=== PATIENT | female | born 1955 | race Caucasian/White ===

== ENCOUNTER → 2016-06-21 | Outpatient (CLI) | payer OTHER ==
[~2016-06-21] MED LIST: ATV/1 PO; CHOLTAB3 PO; CITA20TA4 PO; DOXY50CA PO; HYDR-3124 PO; LEVO100T7 PO; OMEG10007 PO; TRAM-10 PO; VITA400C15 PO
[2016-06-21 13:27] LABS: URINE APPEARANCE CLEAR (CLEAR); URINE BILIRUBIN NEG (NEG); URINE COLOR YELLOW; URINE NITRITE NEG (NEG); URINE SPECIFIC GRAVITY 1.009 (1.000-1.030); UROBILINOGEN NEG (NEG)
[2016-06-21 13:29] LABS: MANUAL MICROSCOPIC REQUIRED? NO; REVIEW REQ? NO
== END | disposition home or self-care (01) ==
LOC: C.LABSPEC 12:42
PROVIDERS: ATTEND Internal Medicine
DX: N39.0 Urinary tract infection, site not specified (principal)

== ENCOUNTER → 2016-11-13 | Outpatient (CLI) | payer OTHER ==
[2016-11-13 17:38] LABS: BASO % 0.8 %; BASO ABS # 0.03 K/uL (0-0.2); COMPLETE YES; EOS % 12.2 %; LYMPH % 37.2 %; LYMPH ABS # 1.43 K/uL (1.2-3.4); MEAN CELL VOLUME 88.8 fL (80-100); MEAN CORPUSCULAR HEMOGLOBIN 30.5 pg (25-34); MEAN CORPUSCULAR HGB CONC 34.4 g/dl (32-36); MONO % 6.5 %; NEUT % 43.3 %; PLATELET COUNT 197 K/uL (130-400); RED BLOOD COUNT 4.39 M/uL (4.2-5.4); WHITE BLOOD COUNT 3.84 K/uL (4.8-10.8)
[2016-11-13 17:58] LABS: ALT/SGPT 36 U/L (12-78); AST/SGOT 22 U/L (15-37); BLOOD UREA NITROGEN 15 mg/dl (7-18); BUN/CREATININE RATIO 17.8 (10-20); CALCIUM 8.4 mg/dl (8.5-10.1); CARBON DIOXIDE 28 mmol/L (21-32); CHLORIDE 110 mmol/L (98-107); CREATININE 0.87 mg/dl (0.60-1.20); GLUCOSE 79 mg/dl (70-99); POTASSIUM 3.6 mmol/L (3.5-5.1); SODIUM 145 mmol/L (136-145)
[2016-11-13 18:09] LABS: ALB/GLOB RATIO 1.1 (0.9-2); ALKALINE PHOSPHATASE 82 U/L (45-117)
== END | disposition home or self-care (01) ==
LOC: C.LABBFT 10:31
PROVIDERS: ATTEND Internal Medicine
DX: E03.9 Hypothyroidism, unspecified (principal)

== ENCOUNTER → 2016-11-21 | Outpatient (CLI) | payer OTHER | END | disposition home or self-care (01) | LOC: C.PAPS 12:40 | PROVIDERS: ATTEND Obstetrics & Gynecology | DX: Z12.4 Encounter for screening for malignant neoplasm of cervix (principal) ==

== ENCOUNTER → 2016-12-27 | Outpatient (CLI) | payer OTHER | END | disposition home or self-care (01) | LOC: C.CPL 09:35 | PROVIDERS: ATTEND Orthopaedic Surgery Sports Medicine | DX: M77.41 Metatarsalgia, right foot (principal) ==

== ENCOUNTER → 2017-01-01 | Outpatient (CLI) | payer OTHER ==
--- NOTE | 2017-01-02 07:44 | MAMMOGRAPHY REPORT ---
BILATERAL DIGITAL SCREENING MAMMOGRAM WITH CAD: 01/01/2017 CLINICAL HISTORY: Routine screening. Patient has no complaints. TECHNIQUE: Bilateral CC and MLO views were obtained. Current study was also evaluated with a Compute r Aided Detection (CAD) system. COMPARISON: Comparison is made to exams dated: 07/22/2014 aspiration, 07/22/2014 mammogram, 07/02/2014 u ltrasound, 07/02/2014 mammogram - [facility], 02/26/2014 mammogram, and 10/16/2011 mamm ogram. BREAST COMPOSITION: The tissue of both breasts is heterogeneously dense, which may obscure small mas ses. FINDINGS: A linear scar marker overlies the superior right breast. There has been no reaccumulation of the previously aspirated cyst in the 8:00 left breast. No new suspicious mass, architectural dist ortion or cluster of microcalcifications is seen. IMPRESSION: ACR BI-RADS CATEGORY 1: NEGATIVE There is no mammographic evidence of malignancy. A 1 year screening mammogram is recommended. The pa tient will receive written notification of the results. Approximately 10% of breast cancers are not detected with mammography. A negative mammographic report should not delay biopsy if a clinically suggestive mass is present. Maude Parekh M.D. ay/:01/01/2017 15:23:09 [employer]ilermaker: Nena Chaudhry, [facility] letter sent: Normal 1/2 BI-RADS Code: ACR BI-RADS Category 1: Negative
== END | disposition home or self-care (01) ==
LOC: C.MAMM 13:35
PROVIDERS: ATTEND Obstetrics & Gynecology
DX: Z12.31 Encounter for screening mammogram for malignant neoplasm of breast (principal)

== ENCOUNTER → 2017-09-05 | Outpatient (CLI) | payer OTHER ==
[2017-09-05 12:37] LABS: BASO % 1.2 %; BASO ABS # 0.03 K/uL (0-0.2); EOS % 10.7 %; EOS ABS # 0.27 K/uL (0-0.5); HEMATOCRIT 39.5 % (37-47); HEMOGLOBIN 13.7 g/dL (12.0-16.0); LYMPH % 38.9 %; LYMPH ABS # 0.98 K/uL (1.2-3.4); MEAN CELL VOLUME 86.6 fL (80-100); MEAN CORPUSCULAR HGB CONC 34.7 g/dl (32-36); MEAN PLATELET VOLUME 10.2 fL (7.4-10.4); MONO % 9.5 %; MONO ABS # 0.24 K/uL (0.11-0.59); NEUT % 39.7 %; PLATELET COUNT 222 K/uL (130-400); RED CELL DISTRIBUTION WIDTH CV 13.8 % (11.5-14.5); RED CELL DISTRIBUTION WIDTH SD 43.6 fL (36.4-46.3); WHITE BLOOD COUNT 2.52 K/uL (4.8-10.8)
[2017-09-05 13:30] LABS: BLOOD UREA NITROGEN 11 mg/dl (7-18); CREATININE 0.84 mg/dl (0.60-1.20); GLUCOSE 86 mg/dl (70-99)
[2017-09-05 13:31] LABS: ALBUMIN 3.6 gm/dl (3.4-5.0); ALT/SGPT 18 U/L (12-78); CALCIUM 9.3 mg/dl (8.5-10.1); CARBON DIOXIDE 28 mmol/L (21-32); CHOLESTEROL 209 mg/dl (0-200); POTASSIUM 3.8 mmol/L (3.5-5.1); SODIUM 140 mmol/L (136-145)
[2017-09-05 13:41] LABS: ALKALINE PHOSPHATASE 64 U/L (45-117); AST/SGOT 17 U/L (15-37); LDL CHOLESTEROL CALCULATED 120 mg/dl; TOTAL PROTEIN 6.8 gm/dl (6.4-8.2)
== END | disposition home or self-care (01) ==
LOC: C.LABBFT 10:46
PROVIDERS: ATTEND Internal Medicine
DX: E03.9 Hypothyroidism, unspecified (principal); D72.819 Decreased white blood cell count, unspecified; E78.5 Hyperlipidemia, unspecified

== ENCOUNTER → 2017-09-12 | Outpatient (CLI) | payer OTHER | END | disposition home or self-care (01) | LOC: C.LABBFT 14:00 | PROVIDERS: ATTEND Internal Medicine | DX: R39.15 Urgency of urination (principal); R35.0 Frequency of micturition ==

== ENCOUNTER 2019-02-24 15:29 | Inpatient (IN) ==
[2019-02-24] MEDS ORDERED: cefTRIAXone SODIUM 1,000 MG/50 ML BAG IV STA (17:04)
[2019-02-24] MEDS ORDERED: ACETAMINOPHEN 500 MG TAB PO STA (17:04)
[2019-02-24] MEDS ORDERED: VANCOMYCIN HCL 1,000 MG in SODIUM CHLORIDE 0.9% 500 ML IV ONE (17:07)
[2019-02-24] MEDS ORDERED: VANCOMYCIN CONSULT ACTIVE PRN (17:07)
[2019-02-24 17:39] LABS: Basophils # (auto) 0.01 K/uL (0-0.2); Basophils % (auto) 0.2 %; Eosinophils % (auto) 6.5 %; Hematocrit (blood only) 37.2 % (37-47); Lymphocytes # (auto) 0.76 K/uL (1.2-3.4); Lymphocytes % (auto) 16.3 %; Mean Corpuscular Hemoglobin 31.4 pg (25-34); Mean Corpuscular Hgb Conc 34.9 g/dL (32-36); Mean Corpuscular Volume 89.9 fL (80-100); Mean Platelet Volume 9.7 fL (7.4-10.4); Monocytes # (auto) 0.32 K/uL (0.11-0.59); Monocytes % (auto) 6.9 %; Neutrophils # (auto) 3.26 K/uL (1.4-6.5); Neutrophils % (auto) 70.1 %; Platelet Count 195 K/uL (130-400); RDW Coefficient of Variation 13.4 % (11.5-14.5); RDW Standard Deviation 44.1 fL (36.4-46.3); Red Blood Count 4.14 M/uL (4.2-5.4); White Blood Count 4.65 K/uL (4.8-10.8)
[2019-02-24 18:00] LABS: BUN Creatinine Ratio 14.9 (10-20); Calcium 9.7 mg/dl (8.5-10.1); Creatinine Clr Calc Pharmacy 58.8 ml/min; Est GFR (African American) 105.4; Est GFR (Non-African American) 90.9; Potassium 4.1 mmol/L (3.5-5.1)
--- NOTE | 2019-02-24 18:10 | XRay Report ---
XR finger LT min 2V CLINICAL HISTORY: 63 years-old Female presenting with index, poss fb. TECHNIQUE: Frontal, oblique, and lateral views of the left second finger were obtained. COMPARISON: None. FINDINGS: No soft tissue emphysema. No osseous erosion or periosteal reaction. No acute fracture or malalignmen t. No radiopaque foreign body. Mild diffuse soft tissue swelling of the second finger. IMPRESSION: No acute osseous injury. No radiodense foreign body. Electronically signed by: Rosendo Moore M.D. 02/24/2019 6:08 PM
--- NOTE | 2019-02-24 20:45 | History & Physical Report ---
Date of Service February 24, 2019 Assessment & Plan (1) Insect bite: Admit to inpatient MedSurg Vital signs every 4 hours CBC CMP CRP daily Wound Culture obtained in the ER result pending. Started vancomycin in the ER per pharmacy management, continue inpatient. Started IV fluid hydration 80 cc/h normal saline for 1 L Pain management with Percocet 5 325 mg every 4 hours as needed. DVT prophylaxis with heparin 5000 units every 12 hours Consider consulting orthopedics if no improvement such as hand specialist Case discussed with poison control they did not have any specific recommendation at this time except for the current treatment that has been already done. Full code Present on Admission?: Yes (2) Cellulitis of hand, left: As above Present on Admission?: Yes (3) Failure of outpatient treatment: As above Present on Admission?: Yes (4) Hypothyroidism: Continue home medicine levothyroxine 112 MCG's p.o. daily. Repeat TSH pending. Present on Admission?: Yes (5) Rosacea: Stable, continue doxycycline 50 mg p.o. daily Present on Admission?: Yes (6) Anxiety: Continue home meds Lorazepam 0.5 p.o. every morning, and 1 mg p.o. nightly, pregabalin 50 mg p.o. as directed, hydroxyzine 25 mg p.o. daily and citalopram 30 mg p.o. daily for depression Present on Admission?: Yes History of Present Illness Chief Complaint: Left hand cellulitis Primary Care Provider: Yaya Solano MD Patient is a 63 years old female with past medical history of rosacea on low- dose of doxycycline, hypothyroidism, sensory now neural hearing loss, anxiety, depression, who presents to the emergency room with complaint of constant left hand pain started 2 days ago. The patient states that she felt something bite her left hand 2 days ago while she was cleaning the garage. She noted that might have been a spider. She reports that her hand is now throbbing and she states that her hand has been getting increasingly swollen and red over the last 2 days. Patient rates her pain 3 of 10. She used some cortisone cream and ice but that did not relieve her symptoms. Patient was treated as outpatient with clindamycin and that also did not help. Patient is able to move all 5 fingers of the left hand. There is a mild swelling and erythema located at the dorsum of the first finger exactly relocated that the second metacarpal bone which is more like a eschar dark red-bluish with soft center.Minimal drainage from the eschar. Patient denies fever, chills, headache, chest pain, abdominal pain, frequency, urgency, bruising, syncope near syncope hematuria or dysuria. Labs are reviewed: And shows white blood cell of 4.65, hemoglobin 13, hematocrit 37.2, platelets 195, sodium 142, potassium 4.1, chloride 108, BUN 10, creatinine 0.7, GFR 90.9, calcium 9.7. X-rays of the left hand with index finger: No acute osseous injury no radiodense foreign body. Decision was made to admit patient to [facility] and continue with IV antibiotics until wound cultures are available. Allergies Allergy/AdvReac Type Severity Reaction Status Date / Time egg Allergy Mild swelling Verified 02/24/19 16:42 gabapentin Allergy Mild Dizziness Verified 02/24/19 16:42 Penicillins Allergy Mild Rash Verified 02/24/19 16:42 Sulfa (Sulfonamide Allergy Mild Rash Verified 02/24/19 16:42 Antibiotics) bupropion Allergy Unknown Sores in Verified 02/24/19 16:42 mouth, skin breakouts nitrofurantoin Allergy Unknown Unknown Verified 02/24/19 16:42 [From Macrodantin] Home Medications Home Medications Medication Instructions Recorded Confirmed Type hydroxyzine HCl 25 mg tablet 25 mg PO DAILY 01/30/19 02/24/19 History levothyroxine 112 mcg capsule 112 mcg PO DAILY 01/30/19 02/24/19 History doxycycline hyclate 50 mg capsule 50 mg PO DAILY #90 cap 02/11/19 02/24/19 Rx citalopram 30 mg PO DAILY 02/24/19 02/24/19 History clindamycin HCl 300 mg PO Q6H 10 Days #80 cap 02/24/19 02/24/19 Rx lorazepam 0.5 mg PO QAM 02/24/19 02/24/19 History lorazepam 1 mg PO HS 02/24/19 02/24/19 History pregabalin [Lyrica] 50 mg PO DIRECTED 02/24/19 02/24/19 History Past Med/Surg History Medical History Hypothyroidism (Acute) Postmenopausal atrophic vaginitis (Acute) Rosacea (Acute) SNHL (sensorineural hearing loss) (Acute) Vitamin D deficiency (Acute) Anxiety Depression Agitation (Acute) Family History Other No significant family history Social History Preferred Language: Angolan Feels Safe at Home: Yes Smoking Status: Never smoker Review of Systems Review of Systems: All systems reviewed & are unremarkable except as noted in HPI & below Physical Exam Constitutional: WD/WN, vitals as above well developed Eyes: PERRL, conjunctivae normal, anicteric sclerae ENMT: external ear and nose normal, oropharynx normal Neck: trachea midline, no thyromegaly Respiratory: normal respiratory effort, lungs clear to auscultation Cardiovascular: RRR, no murmur, no edema Gastrointestinal (Abdomen): normal bowel sounds, soft, nontender, no hepatosplenomegaly Musculoskeletal: no cyanosis or clubbing, extremities motor strength 5/5 Skin: Redness and mild swelling of the left hand index finger and proximal pha cardoso with eschar and soft center. Patient able to move all 4 fingers. Circulation is preserved. There is no circumferential swelling around the finger. Minimal pain. Minimal drainage. Size approximately 3.5 cm x 2 cm. Purplish dark red in color. Neurologic: patellar DTR's 2+ bilat, sensation intact Psychiatric: A+Ox3, euthymic affect Lymphatic: no cervical or axillary lymphadenopathy Results & Data Vital Signs (Past 12 Hours) Vital Signs Temp Pulse Pulse Resp BP BP Pulse Ox 02/24/19 18:55 67 18 129/93 99 02/24/19 15:56 36.9 C 87 18 122/67 99 Code Status & VTE Plan Code Status Full code VTE Prophylaxis Plan VTE Prophylaxis will be ordered: Yes PG Care Time/CCT Total # of Minutes Spent Total Time Spent with Patient: Total time spent is greater than 50% in coordination of care (as documented) at patient's floor/unit and/or counseling patient: (1) Insect bite Encounter type: subsequent encounter Finger: unspecified finger Laterality: left Site of insect bite: finger Qualified Code(s): S60.469D - Insect bite (nonvenomous) of unspecified finger, subsequent encounter; W57.XXXD - Bitten or stung by nonvenomous insect and other nonvenomous arthropods, subsequent encounter
--- NOTE | 2019-02-24 21:46 | Emergency Department Note ---
Entered by Khushi Abraham acting as a scribe for Harish Figueroa MD History of Present Illness General Chief complaint: Infection Stated complaint: BLISTERS,PAIN Time Seen by Provider: 02/24/19 16:54 Source: patient Limitations: no limitations History of Present Illness Onset (ago): hour(s) (this morning) Location: upper extremity (left second digit ) Pain Consistency: + other (worsening) Maximum Pain Intensity: 5 Current Pain Intensity: 5 Quality: + other (pain, blisters, throbbing) Relieved By: + none Associated symptoms: + fever/chills and + other (pain) Treatments prior to arrival: splint The patient is a 63 year old female who presents to the Emergency Room with complaints of worsening "throbbing" left second digit pain that worsened this morning. She states that the pain began 2 days ago when she felt an insect bite her finger, and it worsened this morning. The patient rates her current pain as a 5/10. The patient notes that there was a "raised puncture wound" on her finger after the bite, and it is now "black and blistered." She states that the erythema has spread up her second digit. The patient reports that she was seen in the ED today for the symptoms, and she was given a tetanus shot, had her finger was splinted, and she was prescribed Clindamycin. She notes that she had two doses of Clindamycin. The patient complains of pain and chills. She denies any nausea/vomiting. She states that Ibuprofen, Cortisone cream, Benadryl, and cold therapy have provided no relief. Home Medications Home Medications Medication Instructions Recorded Confirmed Type hydroxyzine HCl 25 mg tablet 25 mg PO DAILY 01/30/19 02/24/19 History levothyroxine 112 mcg capsule 112 mcg PO DAILY 01/30/19 02/24/19 History doxycycline hyclate 50 mg capsule 50 mg PO DAILY #90 cap 02/11/19 02/24/19 Rx citalopram 30 mg PO DAILY 02/24/19 02/24/19 History clindamycin HCl 300 mg PO Q6H 10 Days #80 cap 02/24/19 02/24/19 Rx lorazepam 0.5 mg PO QAM 02/24/19 02/24/19 History lorazepam 1 mg PO HS 02/24/19 02/24/19 History pregabalin [Lyrica] 50 mg PO DIRECTED 02/24/19 02/24/19 History Allergies Allergy/AdvReac Type Severity Reaction Status Date / Time egg Allergy Mild swelling Verified 02/24/19 16:42 gabapentin Allergy Mild Dizziness Verified 02/24/19 16:42 Penicillins Allergy Mild Rash Verified 02/24/19 16:42 Sulfa (Sulfonamide Allergy Mild Rash Verified 02/24/19 16:42 Antibiotics) bupropion Allergy Unknown Sores in Verified 02/24/19 16:42 mouth, skin breakouts nitrofurantoin Allergy Unknown Unknown Verified 02/24/19 16:42 [From Macrodantin] Past Med/Surg History Medical History Hypothyroidism (Acute) Postmenopausal atrophic vaginitis (Acute) Rosacea (Acute) SNHL (sensorineural hearing loss) (Acute) Vitamin D deficiency (Acute) Anxiety Depression Agitation (Acute) Family History Other No significant family history Social History Preferred Language: Swedish Feels Safe at Home: Yes Smoking Status: Never smoker Review of Systems See HPI for pertinent positives & negatives. and A total of 10 systems reviewed and were otherwise negative Physical Exam Vital Signs Vital Signs - 24 hr 02/24/19 15:56 02/24/19 18:55 Temperature 36.9 C Temperature Source Oral Sepsis Recent Fever Within 48 Hours No Sepsis New/Unexplained Change in Mental Status No Sepsis Action Taken by Nursing No Action Required Pulse Rate 87 Pulse Rate [Apical] 67 Respiratory Rate 18 18 Respiratory Effort / Characteristics Non-Labored Spontaneous Non-Labored Spontaneous Respiratory Depth Normal Normal Respiratory Pattern Regular Blood Pressure 122/67 Blood Pressure [Left Arm] 129/93 Blood Pressure Mean 85 Blood Pressure Mean [Left Arm] 105 Pulse Oximetry 99 99 Oxygen Delivery Method Room Air Room Air GENERAL: Patient is in no acute distress. HEENT: No acute trauma, normocephalic atraumatic, mucous membranes moist, no na giancarlo congestion, no scleral icterus. NECK: No stridor, no adenopathy, no meningismus, trachea is midline. LUNGS: Clear to auscultation bilaterally, no wheeze, no rhonchi, breath sounds equal. HEART: Without murmurs gallops or rubs, regular rate and rhythm. ABDOMEN: Soft, nontender, bowel sounds positive, no hernias, no peritonitis. EXTREMITIES: She has a 3-4 cm area of blackened skin with blistering located to the dorsal aspect of the proximal second finger. Surrounding erythema to the dorsum of the hand, extending to the wrist. There is some warmth present. No drainage. No real pain to move the joints of the second finger. NEUROLOGIC: Oriented x 3, no acute motor or sensory deficits, no focal weakness. SKIN: No rash, no jaundice, no diaphoresis. Course 1656: The patient was evaluated in room C01. A complete history and physical exam was performed. 1813: I reevaluated the patient. On reevaluation, she did not appear improved. She is resistant to be discharged. 1833: I spoke with Dr. Johnson, [facility] hospitalist, about the patients case. Dr. Johnson will further evaluate the patient. Consultations Consultation #1: I spoke with Dr. Johnson, [facility] hospitalist, about the patients case. Dr. Johnson will further evaluate the patient. Time: 18:33 Administered Medications Sodium Chloride (Nss 1000ml) 1,000 mls @ 80 mls/hr IV .[id number] CECILIO Stop: 02/25/19 10:52 Last Admin: 02/24/19 23:12 Dose: 80 mls/hr Documented by: [id number] Discontinued Medications Acetaminophen (Tylenol) 1,000 mg PO NOW STA Stop: 02/24/19 17:05 Last Admin: 02/24/19 17:30 Dose: 1,000 mg Documented by: [id number] Ceftriaxone Sodium (Rocephin) 1,000 mg in 50 mls @ 100 mls/hr IV NOW STA Stop: 02/24/19 17:33 Last Infusion: 02/24/19 18:17 Dose: 0 mls/hr Documented by: [id number] Admin: 02/24/19 17:29 Dose: 100 mls/hr Documented by: [id number] Vancomycin HCl 1,000 mg/ (Sodium Chloride) 520 mls @ 200 mls/hr IV NOW ONE Stop: 02/24/19 19:42 Last Infusion: 02/24/19 21:52 Dose: 0 mls/hr Documented by: [id number] Admin: 02/24/19 18:31 Dose: 200 mls/hr Documented by: [id number] Medical Decision Making Differential Diagnosis The differential diagnosis includes: cellulitis, failed outpatient treatment, MRSA, allergic reaction, tenosynovitis, and septic joint. Medical Records Attestation: I reviewed the patient's medical records. Home Medications Current Medication List: was personally reviewed by me Laboratory Data Attestation: I reviewed the patient's lab results. Result diagrams: 02/24/19 17:24 02/24/19 17:24 Lab Results 02/24/19 02/24/19 Range/Units 17:24 17:24 WBC 4.65 L (4.8-10.8) K/uL RBC 4.14 L (4.2-5.4) M/uL Hgb 13.0 (12.0-16.0) g/dL Hct 37.2 (37-47) % MCV 89.9 (80-100) fL MCH 31.4 (25-34) pg MCHC 34.9 (32-36) g/dL RDW Std Deviation 44.1 (36.4-46.3) fL RDW Coeff of Juan C 13.4 (11.5-14.5) % Plt Count 195 (130-400) K/uL MPV 9.7 (7.4-10.4) fL Immature Gran % (Auto) 0.0 % Neut % (Auto) 70.1 % Lymph % (Auto) 16.3 % [place] % (Auto) 6.9 % Eos % (Auto) 6.5 % Baso % (Auto) 0.2 % Immature Gran # (Auto) 0.00 (0.00-0.02) K/uL Neut # (Auto) 3.26 (1.4-6.5) K/uL Lymph # (Auto) 0.76 L (1.2-3.4) K/uL [place] # (Auto) 0.32 (0.11-0.59) K/uL Eos # (Auto) 0.30 (0-0.5) K/uL Baso # (Auto) 0.01 (0-0.2) K/uL Sodium 142 (136-145) mmol/L Potassium 4.1 (3.5-5.1) mmol/L Chloride 108 H (98-107) mmol/L Carbon Dioxide 28 (21-32) mmol/L Anion Gap 5.0 (3-11) BUN 10 (7-18) mg/dl Creatinine 0.70 (0.6-1.2) mg/dl Est Cr Clr Drug Dosing 58.8 ml/min Est GFR ( Amer) 105.4 Est GFR (Non-Af Amer) 90.9 BUN/Creatinine Ratio 14.9 (10-20) Glucose 100 H (70-99) mg/dl Calcium 9.7 (8.5-10.1) mg/dl Imaging Data Radiologist's Impression: Radiology results as stated below per my review and the radiologist's interpretation: XR finger LT min 2V CLINICAL HISTORY: 63 years-old Female presenting with index, poss fb. TECHNIQUE: Frontal, oblique, and lateral views of the left second finger were obtained. COMPARISON: None. FINDINGS: No soft tissue emphysema. No osseous erosion or periosteal reaction. No acute fracture or malalignment. No radiopaque foreign body. Mild diffuse soft tissue swelling of the second finger. IMPRESSION: No acute osseous injury. No radiodense foreign body. Electronically signed by: Rosendo Moore M.D. 02/24/2019 6:08 PM Blood Pressure Blood Pressure Findings: Elevated blood pressure Blood Pressure Disposition: further management by hospitalist TEE Narrative There is no leukocytosis or concerning anemia. No significant electrolyte abnormality or kidney failure. Culture of the wound on the left dorsal hand is pending. Film of the left second finger does not show any evidence for air within the soft tissues, no evidence for finger fracture or foreign debris in the soft tissue. The patient received IV vancomycin, IV ceftriaxone, she was given oral Tylenol. The patient presents with worsening of her hand infection in just a short timefr conrado despite oral antibiotics. I am of course concerned about MRSA. The patient has limited medications she can use because of her allergies. Of note, she is already on doxycycline on a regular basis. I do think a hospital stay is warranted. This seems to be an aggressive cellulitis. I did speak to the patient and family caseworker. The on-call hospitalist was consulted. Impression & Plan Cellulitis of hand, left, Insect bite, Failure of outpatient treatment Discharge Plan Visit Data *Final* Discharge Date/Time: 02/24/19 21:49 Chief Complaint: Infection Stated Complaint: BLISTERS,PAIN ED Provider: Harish Figueroa Discharge Problem: Cellulitis of hand, left, Insect bite, Failure of outpatient treatment Patient Disposition: Admitted As Inpatient Discharge Instructions Interventions: ED Discharge Assessment Last Done: 02/24/19 21:49 Discharge Problem: Insect bite Qualifiers: Encounter type: subsequent encounter Site of insect bite: finger Finger: unspecified finger Laterality: left Qualified Code(s): S60.469D - Insect bite (nonvenomous) of unspecified finger, subsequent encounter The scribe's documentation has been prepared under my direction and personally reviewed by me in its entirety. I confirm that the note above accurately reflects all work, treatment, procedures, and medical decision making performed by me.
[2019-02-24] MEDS ORDERED: ALUMINUM/MAGNESIUM SUSP 30 ML UDC PO PRN (22:23)
[2019-02-24] MEDS ORDERED: MAGNESIUM HYDROXIDE SUSP 30 ML UDC PO PRN (22:23)
[2019-02-24] MEDS ORDERED: OXYCODONE/ACETAMINOPHEN 5mg/325mg TAB PO PRN (22:23)
[2019-02-24] MEDS ORDERED: ZOLPIDEM TARTRATE 5 MG TAB PO PRN (22:23)
[2019-02-24] MEDS ORDERED: SODIUM CHLORIDE 0.9% 1000ML 1,000 ML IV SCH (22:23)
[2019-02-24] MEDS ORDERED: ONDANSETRON INJ 2 MG/ML 2 ML VIAL IV PRN (22:23)
[2019-02-24] MEDS ORDERED: POLYETHYLENE (MIRALAX) 17 GM PACK PO PRN (22:23)
[2019-02-24] MEDS ORDERED: LORazepam 1 MG TAB PO SCH (23:00)
[2019-02-24] MEDS: HEPARIN SOD 5,000 UNIT/0.5 ML VIAL SQ SCH (23:32)
--- NOTE | 2019-02-25 05:50 | Pharmacy Report ---
Pharmacy Abx Initial Consult - Date of Service February 25, 2019 - Pharmacy Dosing Scope Date of Consult: 02/24/19 Consultation requested by: Dr. Johnson Pharmacy is consulted to initiate vancomycin IV dosing therapy, order appropriate labs and adjust drug dose/frequency. - Subjective The patient is a 63 year old F admitted on 02/24/19 20:32. - Objective Height: 5 ft 2 in Weight: 48.1 kg Vital Signs (Past 12hrs): Vital Signs Temp Pulse Pulse Resp BP BP Pulse Ox 02/24/19 22:15 36.8 C 72 16 133/81 98 02/24/19 18:55 67 18 129/93 99 Lab Results (24hrs): Laboratory Tests (24 Hours) 02/24/19 02/24/19 17:24 17:24 WBC 4.65 L Neut # (Auto) 3.26 Creatinine 0.70 Est Cr Clr Drug Dosing 58.8 Micro Results: 02/24/19 17:11 Gram Stain - Pending Finger,Left Index Deep Wound Culture - Pending - Risk Factors for Resistance * Antimicrobial use within the last 90 days (doxycycline 50 mg PO daily) - Assessment & Plan Assessment 63 year old F admitted with worsening cellulitis. Plan vancomycin for treatment of cellulitis Vancomycin IV * Estimated PK Parameters: Vd 0.7 L/kg, Bakari 0.053 hr-1, t1/2 13 hr * Loading dose: 1000 mg (22 mg/kg) * Maintenance dose: 750 mg IV (16 mg/kg) every 12 hours * Goal trough level for cellulitis, failing oral antibiotics : 15 to 20 mcg/mL * Trough ordered for 02/26/19 * A more aggressive dose/interval has been chosen secondary to patient's low body weight. Pharmacy will continue to follow and will adjust dose/frequency as necessary. Thank you.
[2019-02-25] MEDS ORDERED: VANCOMYCIN HCL 750 MG in SODIUM CHLORIDE 0.9% 250 ML IV SCH (06:00)
[2019-02-25 06:02] LABS: Basophils # (auto) 0.01 K/uL (0-0.2); Basophils % (auto) 0.3 %; Eosinophils # (auto) 0.36 K/uL (0-0.5); Eosinophils % (auto) 9.6 %; Hematocrit (blood only) 34.3 % (37-47); Hemoglobin 11.6 g/dL (12.0-16.0); Immature Granulocytes # (auto) 0.01 K/uL (0.00-0.02); Immature Granulocytes % (auto) 0.3 %; Lymphocytes # (auto) 1.25 K/uL (1.2-3.4); Lymphocytes % (auto) 33.2 %; Mean Corpuscular Hemoglobin 30.4 pg (25-34); Mean Corpuscular Hgb Conc 33.8 g/dL (32-36); Mean Platelet Volume 9.6 fL (7.4-10.4); Monocytes # (auto) 0.38 K/uL (0.11-0.59); Monocytes % (auto) 10.1 %; Neutrophils # (auto) 1.75 K/uL (1.4-6.5); Neutrophils % (auto) 46.5 %; Platelet Count 169 K/uL (130-400); RDW Coefficient of Variation 13.3 % (11.5-14.5); RDW Standard Deviation 44.1 fL (36.4-46.3); Red Blood Count 3.81 M/uL (4.2-5.4); White Blood Count 3.76 K/uL (4.8-10.8)
[2019-02-25] MEDS ORDERED: LEVOTHYROXINE SODIUM 112 MCG TABLET PO SCH (06:30)
[2019-02-25 06:54] LABS: Alanine Aminotransferase 19 U/L (12-78); Albumin Level 2.9 gm/dl (3.4-5.0); Alkaline Phosphatase 62 U/L (45-117); Aspartate Aminotransferase 13 U/L (15-37); BUN Creatinine Ratio 14.1 (10-20); Bilirubin,Total 0.7 mg/dl (0.2-1); Blood Urea Nitrogen 9 mg/dl (7-18); C Reactive Protein < 0.29 mg/dl (0-0.29); Calcium 8.2 mg/dl (8.5-10.1); Carbon Dioxide 28 mmol/L (21-32); Chloride 111 mmol/L (98-107); Creatinine Clr Calc Pharmacy 68.7 ml/min; Est GFR (African American) 109.7; Est GFR (Non-African American) 94.6; Globulin 2.8 gm/dl (2.5-4.0); Glucose 80 mg/dl (70-99); Potassium 3.9 mmol/L (3.5-5.1); Sodium 145 mmol/L (136-145); Thyroid Stimulating Hormone 0.071 uIu/ml (0.300-4.500); Total Protein 5.7 gm/dl (6.4-8.2)
[2019-02-25] MEDS: LORazepam 1 MG TAB PO SCH ×2 (08:37→09:43)
[2019-02-25] MEDS: HEPARIN SOD 5,000 UNIT/0.5 ML VIAL SQ SCH (08:39)
[2019-02-25] MEDS: ACETAMINOPHEN 325 MG TAB PO PRN ×2 (08:43→17:07)
[2019-02-25] MEDS ORDERED: DOXYCYCLINE HYCLATE 50 MG CAP PO SCH (09:00)
[2019-02-25] MEDS ORDERED: CITALOPRAM 20 MG TAB PO SCH (09:00)
[2019-02-25] MEDS ORDERED: PREGABALIN 50 MG CAP PO SCH (11:30)
[2019-02-25] MEDS ORDERED: SULFAMETHOXAZOLE/TRIMETHOPRIM DS 800/160MG TAB PO ONE (12:40)
--- NOTE | 2019-02-25 18:24 | Discharge Summary ---
Date of Service February 25, 2019 Admission HPI Per Admitting Provider Patient is a 63 years old female with past medical history of rosacea on low- dose of doxycycline, hypothyroidism, sensory now neural hearing loss, anxiety, depression, who presents to the emergency room with complaint of constant left hand pain started 2 days ago. The patient states that she felt something bite her left hand 2 days ago while she was cleaning the garage. She noted that might have been a spider. She reports that her hand is now throbbing and she states that her hand has been getting increasingly swollen and red over the last 2 days. Patient rates her pain 3 of 10. She used some cortisone cream and ice but that did not relieve her symptoms. Patient was treated as outpatient with clindamycin and that also did not help. Patient is able to move all 5 fingers of the left hand. There is a mild swelling and erythema located at the dorsum of the first finger exactly relocated that the second metacarpal bone which is more like a eschar dark red-bluish with soft center.Minimal drainage from the eschar. Patient denies fever, chills, headache, chest pain, abdominal pain, frequency, urgency, bruising, syncope near syncope hematuria or dysuria. Labs are reviewed: And shows white blood cell of 4.65, hemoglobin 13, hematocrit 37.2, platelets 195, sodium 142, potassium 4.1, chloride 108, BUN 10, creatinine 0.7, GFR 90.9, calcium 9.7. X-rays of the left hand with index finger: No acute osseous injury no radiodense foreign body. Decision was made to admit patient to [facility] and continue with IV antibiotics until wound cultures are available. Admission Exam Per Admitting Provider Constitutional: WD/WN, vitals as above well developed Eyes: PERRL, conjunctivae normal, anicteric sclerae ENMT: external ear and nose normal, oropharynx normal Neck: trachea midline, no thyromegaly Respiratory: normal respiratory effort, lungs clear to auscultation Cardiovascular: RRR, no murmur, no edema Gastrointestinal (Abdomen): normal bowel sounds, soft, nontender, no hepatosplenomegaly Musculoskeletal: no cyanosis or clubbing, extremities motor strength 5/5 Skin: Redness and mild swelling of the left hand index finger and proximal phalange with eschar and soft center. Patient able to move all 4 fingers. Circulation is preserved. There is no circumferential swelling around the finger. Minimal pain. Minimal drainage. Size approximately 3.5 cm x 2 cm. Purplish dark red in color. Neurologic: patellar DTR's 2+ bilat, sensation intact Psychiatric: A+Ox3, euthymic affect Lymphatic: no cervical or axillary lymphadenopathy Principal Diagnosis spider bite / cellulitis Discharge Exam Constitutional well developed and well nourished; no acute distress Respiratory normal respiratory effort, lungs clear to auscultation Cardiovascular RRR, no murmur, no edema Skin redness without significant swelling of the left hand. Index finger and proximal phalange is crusted and red. Patient has good perfusion distal of the wound which measures roughly [id number]. Psychiatric A+Ox3, euthymic affect Discharge Data Allergies Allergy/AdvReac Type Severity Reaction Status Date / Time egg Allergy Mild swelling Verified 02/24/19 16:42 gabapentin Allergy Mild Dizziness Verified 02/24/19 16:42 Penicillins Allergy Mild Rash Verified 02/24/19 16:42 Sulfa (Sulfonamide Allergy Mild Rash Verified 02/24/19 16:42 Antibiotics) bupropion Allergy Unknown Sores in Verified 02/24/19 16:42 mouth, skin breakouts nitrofurantoin Allergy Unknown Unknown Verified 02/24/19 16:42 [From Macrodantin] Consultations 02/24/19 18:32 ED Decision to Admit Stat Hospital Course (1) Insect bite: 63 yo F w/ pMHx. of rosacea on low dose doxycycline, hypothyroidism, hearing loss, anxiety, depression, and lesion on her left hand. Insect bite - potentially a spider - patient was bitten while cleaning out her garage - concern given the possibility of a brown recluse that patient may have a MRSA infection - follow up with PCP outpatient Dr. Solano Feb.26 1:45 PM Cellulitis 2/2 insect bite - patient afebrile, no leukocytosis, normal heart rate - XR Left hand showed no acute osseous injury - started Bactrim DS 800-160 BID, patient mentioned allergy but was unclear reaction, we monitored for a reaction while patient took medication with no adverse reaction noted. - wound initially had a black eschar and improved over hospital course with de creased swelling and erythema - wound stain was negative - follow up wound cultures currently pending - continue Bactrim for 10 days and follow up with PCP to evaluate for resolution of cellulitis, or an extended course if no resolution. Rosacea - on chronic doxy Hyclate 50mg daily continued inpatient and discharged with home dose Hypothyroidism - TSH .071 while inpatient - continued home Levothyroxine dose while inpatient - discharged with home dose - follow up outpatient for potential medication adjustment Anxiety and depression - continued home Citalopram 30 mg, Lorazepam 1 mg HS while admitted - discharged on home dose DVT: Heparin while hospitalized, none needed after discharge (2) Cellulitis of hand, left: (3) Failure of outpatient treatment: (4) Hypothyroidism: (5) Rosacea: (6) SNHL (sensorineural hearing loss): (7) Anxiety: (8) Depression: Total Time Total Time Spent Total Time Spent (In Minutes): Greater than 30 Discharge Plan Discharge Items Patient Disposition: Home - Self-Care Reason For Visit: LEFT HAND CELLULITIS Discharge Diagnosis: Left hand cellulitis Activity: Resume your previous activity Non-emergency contact: Primary Care Provider Call non-emergency contact if: you have any medication questions Follow-up/Referrals: Yaya Solano III, MD [Primary Care Provider] - 02/26/19 1:45 pm (Please, follow up with Dr. Solano on (TOMORROW) February 26 at 1:45 pm. *If you need to change this appointment, call the office at [phone].) Diet: Regular Addtl Attending Provider Instructions: We would like you to follow up with your primary care doctor and/or the wound clinic for the infection of your hand. It is important to have good monitoring to be sure that the infection is not progressing. If this infection is secondary to a bite from a spider such as a brown recluse, the lesion could continue to develop. In this case, you may need a procedure called a debridement to remove infected and skin. We would like you to take an antibiotic called Bactrim. You had a suspected minor allergy in the past. We trialed the medication in the hospital and you appeared to tolerate it well without adverse reaction. We recommend that you take benadryl if you develop any signs of allergic reaction. These symptoms would include itchy skin, and rash. If you develop severe symptoms of allergic reaction such as lip/throat swelling or shortness of breathe, please immediately go to the emergency room. We advise to keep the area clean and wrapped. Pending Studies at Discharge: No Stand-Alone Forms: My [facility] Medications and DC Order Prescriptions: New sulfamethoxazole-trimethoprim [Bactrim DS] 800-160 mg tablet 1 tab PO BID 10 Days Qty: 20 RF: 0 Continued doxycycline hyclate 50 mg capsule 50 mg PO DAILY Qty: 90 RF: 3 hydroxyzine HCl 25 mg tablet 25 mg PO DAILY RF: 0 levothyroxine 112 mcg capsule 112 mcg PO DAILY RF: 0 citalopram 10 mg Tablet 30 mg PO DAILY RF: 0 pregabalin [Lyrica] 50 mg Capsule 50 mg PO HS RF: 0 lorazepam 1 mg Tablet 1 mg PO HS RF: 0 lorazepam 1 mg tablet 0.5 mg PO QAM RF: 0 Discontinued clindamycin HCl 150 mg capsule 300 mg PO Q6H 10 Days Qty: 80 RF: 0 Discharge Orders: Discharge Order (Routine); Ordered 02/25/19 Ordered By: Rashaad Muhammad Admission Data Admit Date/Time: 02/24/19 20:32 Attending Provider: Rashaad Muhammad Admit Provider: Pillo Johnson Primary Care Provider: Yaya Solano III Other Providers: Pillo Johnson Other Interventions: Discharge Summary Assessment (RN) Last Done: 02/25/19 17:09 DC Date/Time DO NOT enter until pt leaves facility: 02/25/19 17:43 Supervising Physician Co-Signing Physician Notes I personally examined the patient and verified all contreras points of history and exam, discussed case, and agree with decision making with Dr Gomes. Feeling much better. Hand erythema much less, color much better. Feels safe to go home. Extensive discussion on the fact that with the discoloration combined with the cellulitis this certainly does look like she actually had a brown recluse spider bite, discussed secondary risk reduction in addition to antibiotics and follow-up care for the skin. Fortunately with no true areas of necrosis she is unlikely to need debridement, and with the erythema improving dramatically, she appears safe and stable for home. Vitals noted, in general she is awake and alert pleasant no distress. HEENT normal cephalic atraumatic mucous membranes moist. Breathing unlabored no accessory muscle use good effort. Left index finger with an area of erythema much improved from the previously outlined area that extended the hallway of her wrist, now it is really isolated to about a centimeter and a half on the extensor surface of her left index finger between her MP and PIP joint. It is a little bit tender and a little bit fluctuant, but has an opening that is oozing serous fluid. There is no overt necrosis or ulceration. She has full range of motion and is distally neurovascularly intact. Spider bite/cellulitisfortunately does not appear that she will need debridement. Her erythema/cellulitis is improved dramatically, and we discussed ongoing management options, and we both felt it most rational for her to be able to go home with close follow-up. Discussed what worsening would look like, and what "worst-case scenarios" with this would entail, but also discussed that with her dramatic improvement she is likely to improve with antibiotics alone and may be a very small likelihood of the need for some local wound care for the skin. Discussed that spider bites notoriously carry resistant staph, and that our local isolate (antibiogram) show the clindamycin is only about 60% effective against resistant staph, making it quite reasonable for her to have had a treat ment failure with Clinda. She is on chronic doxycycline for suppression for her rosacea, and so while the staff likely would have been more due to the disease vector (the spider) that her skin, it seemed wiser to use an antibiotic with resistant staph activity aside from doxycycline. Local isolates show Bactrim to be about 90% effective against resistant staph. On discussion of her potential sulfa allergy, she noted may be it was a rash on her face, certainly it did not sound like hives it definitely did not sound like anaphylaxis, and in a careful discussion of risks/benefits/alternatives, we both agreed that it was worthwhile to try a dose of Bactrim while she was here in follow-up. Several hours after her dose, I followed up and she showed no signs of reaction, and we both felt safe with her going home. She will have follow-up with her PCP tomorrow afternoon. She appears quite stable. Otherwise as above. Resident Activity Tracking Resident Involvement: Resident Care Provided Care Provided: Adult [facility]
[2019-02-26] MEDS ORDERED: VANCOMYCIN TROUGH ONE (05:30)
== END 2019-02-25 17:43 | disposition home or self-care (01) | DRG 603 ==
LOC: ED 15:29 → SUATTDRO 20:32 → 3N 20:32